=== PATIENT | male | born 1990 | race Two or more races ===

== ENCOUNTER 2022-10-18 16:52 | Emergency (ER) | payer SELFPAY ==
[~2022-10-18] VITALS: Ht 175.3 cm; Wt 94.7 kg
[2022-10-18] MEDS ORDERED: AZIT500T66 PO (17:40)
[2022-10-18] MEDS ORDERED: AMLO-489 PO (17:40)
[2022-10-18] MEDS ORDERED: METH4PAK PO (17:40)
[2022-10-18 18:15] VITALS: BP 140/89
== END 2022-10-18 17:45 | disposition home or self-care (01) ==
LOC: ER 16:52
DX: U07.1 COVID-19 (principal); Z76.0 Encounter for issue of repeat prescription; I10 Essential (primary) hypertension; Z79.899 Other long term (current) drug therapy

== ENCOUNTER 2024-07-25 00:46 | Emergency (ER) | payer BC ==
[~2024-07-25] VITALS: Ht 175.3 cm; Wt 104.0 kg
[~2024-07-25 00:46] MED LIST: AMLO1TAB22 PO; AZIT500T66 PO; METH4PAK PO
[2024-07-25 02:07] LABS: Rapid Influenza A Negative (Negative); Rapid Influenza B Negative (Negative)
--- NOTE | 2024-07-25 03:07 | ED.PDOC ---
GI ASSESSMENT Chief Complaint: Flu like Time Seen by MD: 00:54 Primary Care Provider: unknown Reviewed Notes: Nurses Notes, Medications, Allergies Allergies: Coded Allergies: No Known Drug Allergy (Verified Allergy, Unknown, 10/18/22) Home Meds Active Scripts Azithromycin (Azithromycin) 500 Mg Tab, 1 TAB PO DAILY, #5 TAB Prov:PHILIP DALTON 10/18/22 Amlodipine Besylate (Amlodipine Besylate) 5 Mg Tab, 1 TAB PO DAILY, #30 TAB 0 Refills Prov:PHILIP DALTON 10/18/22 Methylprednisolone (Medrol Dosepak) 4 Mg Alex, 4 MG PO UD, #21 TAB UAD Prov:PHILIP DALTON 10/18/22 Information Source: Patient Mode of Arrival: Ambulatory Past Medical History PAST MEDICAL HISTORY: HTN Surgical History: Denies all surgeries Social History Smoker: Non-Smoker Alcohol: Denies ETOH Use Drugs: Denies Drug Use Lives In: Home X-Ray, Labs, Meds, VS Vital Signs Date Time Temp Pulse Resp B/P (MAP) Pulse Ox O2 Delivery O2 Flow Rate FiO2 07/25/24 00:56 98.9 76 18 165/101 (122) 96 Lab Test 07/25/24 01:17 Range/Units Influenza Type A Antigen Negative Negative Influenza Type B Antigen Negative Negative Time of 1ST Reevaluation: 03:15 Departure 1 Departure Time of Disposition: 03:15 Impression: Primary Impression: Pharyngitis Qualified Codes: J02.9 - Acute pharyngitis, unspecified Disposition: 01 HOME / SELF CARE / HOMELESS Condition: Stable e-Prescriptions Methylprednisolone (Medrol Dosepak) 4 Mg Alex 4 MG PO UD for 6 Days, #21 TAB UAD Prov: ILEANA DELCID 07/25/24 Amoxicillin & Pot Clavulanate (AUGMENTIN TABLET) 875 Mg Tb 875 MG PO BID for 7 Days, #14 TAB Prov: ILEANA DELCID 07/25/24 Discharged With: Self Critical Care Note Critical Care Time?: No Stability Stability form required: ILEANA Forte Jul 25, 2024 03:07
[2024-07-25] MEDS ORDERED: METH4PAK PO (03:17)
[2024-07-25] MEDS ORDERED: AUG875T PO (03:17)
[2024-07-25 03:40] VITALS: BP 143/66; PULSE 60; RESP 16; TEMP 98.7; O2SAT 96
== END 2024-07-25 04:10 | disposition home or self-care (01) ==
LOC: ER 00:46
DX: J02.9 Acute pharyngitis, unspecified (principal); I10 Essential (primary) hypertension; Z79.899 Other long term (current) drug therapy
CPT/HCPCS: 87804